=== PATIENT | male | born 1925 | race Caucasian/White ===

== ENCOUNTER 2017-02-05 14:36 | Emergency (ER) | payer MEDICARE, BC ==
[2006-04-18 05:46] VITALS: BP 127/63
[~2017-02-05] VITALS: Ht 172.7 cm; Wt 71.8 kg
[~2017-02-05 14:36] MED LIST: ANTIVERT 12.512.5 MG PO; ASPIR-LOW81 MG PO; ASPIRIN E.C. 8181 MG PO; BETIMOL 10 ML10 M1; CALCIUM 600600 M2 PO; CARDURA4 MG PO; CELEXA 20MG20 MG/TAB PO; CEPHALEXIN500 M1 PO; CLARITIN PO; FLONASE NASAL S16 GM NS; FUROSEMIDE PO; KLONOPIN 0.5MG0.5 MG PO; NORVASC 10MG10 MG PO; NORVASC PO; OMEGA 31000 MG PO; PRAVACHOL80 MG PO; PRILOSEC 20MG20 MG PO; SIMVISTATIN PO; VITAMIN B121000 MC2 PO; VITAMIN D1000 IU PO; [UNRECOGNIZED DRUG - REMARK]
[2017-02-05 14:42] VITALS: TEMP 98
[2017-02-05 15:46] LABS: BASO # 0.1 (0.0-0.2); BASO % 0.9 % (0.0-2.0); EOS # 0.1 (0.0-0.7); EOS % 1.3 % (0-4.0); GRAN # 3.2 (1.4-6.5); GRAN % 58.3 % (42.2-75.2); HEMATOCRIT 41.7 % (42.0-52.0); HEMOGLOBIN 14.5 g/dl (13.5-18.0); LYMPH # 1.7 (1.2-3.4); LYMPH % 31.3 % (20.0-51.0); MEAN CELL VOLUME 89 fl (80.0-100.0); MEAN CORPUSCULAR HEMOGLOBIN 31 pg (27.0-31.0); MEAN CORPUSCULAR HGB CONC 35 g/dl (33.0-37.0); MEAN PLATELET VOLUME 8.6 fl (7.4-10.4); MONO # 0.4 (0.1-0.6); MONO % 7.8 % (1.7-9.3); PLATELET COUNT 246 K/mm3 (130-400); RED BLOOD COUNT 4.67 M/mm3 (4.20-5.60); REDCELL DISTRIBUTION WIDTH-CV 13.2 % (11.5-14.5); WHITE BLOOD COUNT 5.5 K/mm3 (4.8-10.8)
[2017-02-05 16:05] LABS: ADJUSTED CALCIUM 9.5 mg/dL (8.4-10.2); ALANINE AMINOTRANSFERASE 24 U/L (21-72); ALBUMIN 4.2 gm/dL (3.5-5.0); ALKALINE PHOSPHATASE 59 U/L (50-136); ANION GAP 11 mmol/L (7-16); BILIRUBIN,TOTAL 0.7 mg/dL (0.0-1.0); BLOOD UREA NITROGEN 13 mg/dL (9-20); CALCIUM 9.7 mg/dL (8.4-10.2); CARBON DIOXIDE 23 mmol/L (22-30); CHLORIDE 104 mmol/L (98-107); CREATININE, serum 1.14 mg/dL (0.66-1.25); GLUCOSE 106 mg/dL (74-106); POTASSIUM 3.6 mmol/L (3.4-5.0); SODIUM 138 mmol/L (137-145); TOTAL PROTEIN 7.2 gm/dL (6.4-8.2)
[2017-02-05 16:09] LABS: C-REACTIVE PROTEIN < 0.5 mg/dL (0.0-0.9)
[2017-02-05 16:38] LABS: PH 5 (5-8); SQUAMOUS EPITHELIAL None Seen /hpf; URINE APPEARANCE Clear; URINE BACTERIA None Seen /hpf; URINE BILIRUBIN Negative (NEGATIVE); URINE BLOOD Negative (NEGATIVE); URINE COLOR Straw; URINE GLUCOSE Negative (NEGATIVE); URINE KETONE Negative (NEGATIVE); URINE RBC None Seen /hpf; URINE UROBILINOGEN Negative (NEGATIVE); URINE WBC 0-2 /hpf
[2017-02-05 17:55] VITALS: BP 166/84; PULSE 82
== END 2017-02-05 17:56 | disposition home or self-care (01) ==
LOC: COL.ER 14:36
PROVIDERS: Emergency Medicine
DX: K59.00 Constipation, unspecified (principal); I10 Essential (primary) hypertension; F32.9 Major depressive disorder, single episode, unspecified; E78.5 Hyperlipidemia, unspecified; Z85.46 Personal history of malignant neoplasm of prostate; Z85.818 Personal history of malignant neoplasm of other sites of lip, oral cavity, and pharynx